=== PATIENT | female | born 1990 | race African-American/Black ===

== ENCOUNTER 2023-10-05 16:06 | Emergency (ER) | payer OTHER, SELFPAY ==
--- NOTE | ~2023-10-05 | XR_ITS ---
EXAMINATION: XR SHOULDER, LEFT CLINICAL INFORMATION: pain COMPARISON: None TECHNIQUE: Three views of the shoulder. FINDINGS: No acute fracture or dislocation. Mild degenerative changes of the acromioclavicular joint with degenerative spurring. Soft tissues are unremarkable. XR/XR shoulder LT min 2V IMPRESSION: Mild degenerative changes of the acromioclavicular joint with degenerative spurring.
[2023-10-05 16:28] VITALS: BP 136/95; PULSE 97; RESP 20; TEMP 37; O2SAT 99; BMI 39.0
--- NOTE | 2023-10-05 16:33 | ECG_ITS ---
Test Reason : back pain Blood Pressure : / mmHG Vent. Rate : 083 BPM Atrial Rate : 083 BPM P-R Int : 140 ms QRS Dur : 072 ms QT Int : 366 ms P-R-T Axes : 020 005 004 degrees QTc Int : 430 ms Normal sinus rhythm Normal ECG No previous ECGs available Referred By: Yuliana Stewart Electronically Signed By:ALVINA BREWER MD
[2023-10-05] MEDS: Acetaminophen 325 MG TABLET 975 MG PO (16:34)
--- NOTE | 2023-10-05 17:42 | ED.GENADULT ---
HPI - General Adult General Chief complaint: Extremity Problem Stated complaint: Back pain Time Seen by Provider: 10/05/23 20:23 Source: patient Mode of arrival: ambulatory Limitations: no limitations History of Present Illness HPI narrative: Patient is a 33-year-old female presents emergency department for evaluation of atraumatic left shoulder pain predominantly across the posterior shoulder and into the deltoid region. Onset of symptoms approximately 1 week ago, not worsening but not improving despite the use of ibuprofen 400 mg a couple times daily. She does state that she is often lifting heavy objects at work, but does not recall a specific precipitating injury. She denies numbness, tingling, cold sensation to the arm. Denies associated neck pain, dizziness, chest pain, shortness of breath, difficulty breathing. Related Data Previous Rx's Medication Instructions Recorded naproxen 500 mg tablet 500 mg PO BID #14 tabs 10/05/23 Allergies Allergy/AdvReac Type Severity Reaction Status Date / Time No Known Allergies Allergy Verified 10/05/23 16:30 Review of Systems Review of Systems: Yes all other systems are reviewed and are negative [facility] Past Medical History Attestation statement: The following information was validated with the patient. Source: old records reviewed Social History Social History Advance Directives: No Advance Directives Information Provided: No Physical Exam ED Vital Signs: Vital Signs - 24 hr 10/05/23 16:28 10/05/23 19:53 Temperature 98.6 F 97.9 F Pulse Rate 97 83 Respiratory Rate 20 16 Blood Pressure 136/95 H 126/77 Pulse Oximetry 99 98 Oxygen Delivery Method Room Air Room Air BMI result Body Mass Index 39.0 Appearance: Alert.?Oriented to person, place and time. No acute distress.?Normal affect. Eyes: Pupils equal, round and reactive to light.? ENT: Pharynx normal.?? Neck: Normal inspection.? Neck supple.?? CVS: Heart sounds normal. Normal heart rate and rhythm.? Pulses normal.?? Respiratory: No respiratory distress.? Lung sounds clear to auscultation bilaterally?? Abdomen: Soft and non-tender. Normoactive bowel sounds. Skin: Skin warm and dry.? Normal skin color.? Extremities: No extremity edema.? Left shoulder with full AROM including external rotation. Pain is exacerbated upon ranging joint. Neuro: Moves all extremities spontaneously. Sensation intact bilaterally. Ambulates with normal steady gait. Course Course Course Narrative: This is an RME: Additional HPI, ROS, PE not included below will be deferred to primary provider. This is a 33-year-old female presenting to the emergency department with complaints of left shoulder and arm pain x 1 week. she states that she does lift often at work however reports she is unsure what caused her to have this pain. She denies any chest pain but states that the pain occasionally radiates down her left arm. No shortness of breath. Plan: EKG, shoulder x-ray, labs further ER evaluation needed. Medications Administered Discontinued Medications Generic Name Dose Route Start Last Admin Trade Name Freq PRN Reason Stop Dose Admin Acetaminophen 975 mg 10/05/23 16:32 10/05/23 16:34 Acetaminophen 325 Mg Tablet PO 10/05/23 16:33 975 mg ONCE ONE Administration Medical Decision Making Medical Decision Making [facility] Narrative: Patient is a 33-year-old female who presents emergency department for evaluation of atraumatic left shoulder pain radiating into the proximal arm to the deltoid region. Extremities neurovascularly intact distally. Full AROM. No erythema or warmth or fevers to suggest septic joint. No associated chest pain or shortness of breath, low suspicion for ACS, PERC negative. No overt trauma to suggest fracture dislocation, XR confirms this. XR imaging does reveal degenerative changes, at this time suspect pain be most consistent with arthritis. Review rest, ice/heat, elevation, acetaminophen/naproxen for pain. Worrisome signs and symptoms that would warrant re-evaluation in the emergency department. Outpatient follow-up with primary care provider. Differential Diagnosis Differential Diagnoses: The differential diagnosis associated with the presentation includes (As noted above) Lab Data [facility] Lab Attestation statement: I reviewed the patient's lab results. CBC is overall unremarkable. CMP overall unremarkable. High sensitive troponin below detectable limits. 10/05/23 18:57 10/05/23 18:57 Labs: Lab Results 10/05/23 Range/Units 18:57 WBC 6.1 (4.8-10.8) X10*3/uL RBC 3.88 L (4.20-5.50) X10*6/uL Hgb 12.3 (12.0-16.0) g/dl Hct 36.2 L (37.0-47.0) % MCV 93.3 (80.0-98.0) fL MCH 31.7 (27.0-33.0) pg MCHC 34.0 (31.0-35.0) g/dl RDW 12.6 (11.0-16.0) % Plt Count 307 (160-400) X10*3/uL MPV 9.7 (9.4-12.3) fL Immature Gran % (Auto) 0.2 (0.0-0.4) % Neut % (Auto) 42.1 L (45-73) % Lymph % (Auto) 49.9 H (20-40) % [place] % (Auto) 5.4 (2-11) % Eos % (Auto) 1.6 (0-4) % Baso % (Auto) 0.8 (0-2) % Lymph # (Auto) 3.0 (1.2-4.9) X10*3/uL [place] # (Auto) 0.3 (0.1-1.2) X10*3/uL Eos # (Auto) 0.1 (0.0-0.4) X10*3/uL Baso # (Auto) 0.1 (0.0-0.2) X10*3/uL Abs Immat Gran (auto) 0.01 (0.00-0.03) X10*3/uL Absolute Neuts (auto) 2.6 (2.0-8.3) x10*3/uL Absolute Nucleated RBC 0.000 (0.0-0.012) X10*3/uL Nucleated RBC % (auto) 0.0 (0.0-0.2) /100WBC Sodium 138 (135-145) mmol/L Potassium 3.3 (3.3-5.1) mmol/L Chloride 107 (96-108) mmol/L Carbon Dioxide 24 (22-29) mmol/L Anion Gap 10 L (12-20) BUN 12 (9-16) mg/dL Creatinine 0.79 (0.5-1.4) mg/dL Estim Creat Clear Calc 114.1 Estimated GFR > 60 Random Glucose 137 H (60-115) mg/dL Calcium 8.9 (8.4-10.2) mg/dL Total Bilirubin 0.2 (0.0-1.0) mg/dL Direct Bilirubin < 0.2 (0.0-0.5) mg/dL AST 19 (5-31) U/L ALT 17 (0-31) U/L Alkaline Phosphatase 75 (39-117) U/L Troponin I High Sens < 2.7 (<3.5-17.0) ng/L Total Protein 7.4 (6.5-8.0) g/dL Albumin 3.8 (3.5-5.0) g/dL Independent Interpretation I performed an independent interpretation of an: EKG and Plain X-Ray (I personally interpreted x-ray and agree with radiologist impression.) Interpretation: Rate:83 Rhythm:? Normal sinus rhythm [place]:? Normal Normal P waves.? Normal MARYJANE.?? Normal QRS complex.?? ST T wave :??No ST elevation, no ST depression qTC:430 The study has been interpreted contemporaneously by me. Radiology Impression Discussion of test interpretation with radiology: I have reviewed the radiologist's reading. Radiologist Impression: XR/XR shoulder LT min 2V IMPRESSION: Mild degenerative changes of the acromioclavicular joint with degenerative spurring. External Record Review External record reviewed: Outpatient record Prescription Management I considered prescription management with: Pain Medication Discharge Plan Discharge Clinical Impression: Arthritis of shoulder Patient Disposition: Home, Self-Care Additional Instructions: You can take Tylenol 500 mg, 2 tablets (1,000mg) every 4-6 hours as needed for pain, but not to exceed 3 doses daily (3,000mg).? Prescription for naproxen was sent to the pharmacy, take his twice daily as prescribed. Do not take additional [id number] ibuprofen/Motrin/Aleve/aspirin while taking this medication. Prescriptions: New naproxen 500 mg tablet 500 mg PO BID Qty: 14 0RF Referrals: Physician,Unknown J [Primary Care Provider] -
[2023-10-05 19:02] LABS: MANUAL DIFF FLAG NO
[2023-10-05 19:03] LABS: Basophils Absolute Auto 0.1 X10*3/uL (0.0-0.2); Basophils Percent Auto 0.8 % (0-2); Eosinophils Absolute Auto 0.1 X10*3/uL (0.0-0.4); Eosinophils Percent Auto 1.6 % (0-4); Hematocrit 36.2 % (37.0-47.0); Hemoglobin 12.3 g/dl (12.0-16.0); Imm Gran Abs Auto 0.01 X10*3/uL (0.00-0.03); Imm Gran Pct Auto 0.2 % (0.0-0.4); Lymphocytes Percent Auto 49.9 % (20-40); Mean Corpuscular Hemoglobin 31.7 pg (27.0-33.0); Mean Corpuscular Volume 93.3 fL (80.0-98.0); Mean Platelet Volume 9.7 fL (9.4-12.3); Monocytes Absolute Auto 0.3 X10*3/uL (0.1-1.2); Monocytes Percent Auto 5.4 % (2-11); Neutrophils Absolute Auto 2.6 x10*3/uL (2.0-8.3); Neutrophils Percent Auto 42.1 % (45-73); Platelet Count 307 X10*3/uL (160-400); Red Blood Count 3.88 X10*6/uL (4.20-5.50); Red Cell Distribution Width 12.6 % (11.0-16.0); White Blood Count 6.1 X10*3/uL (4.8-10.8)
[2023-10-05 19:17] LABS: Alanine Aminotransferase 17 U/L (0-31); Albumin Level 3.8 g/dL (3.5-5.0); Alkaline Phosphatase 75 U/L (39-117); Anion Gap 10 (12-20); Aspartate Amino Transferase 19 U/L (5-31); Bilirubin Direct < 0.2 mg/dL (0.0-0.5); Bilirubin Total 0.2 mg/dL (0.0-1.0); Blood Urea Nitrogen 12 mg/dL (9-16); Calcium 8.9 mg/dL (8.4-10.2); Carbon Dioxide 24 mmol/L (22-29); Chloride 107 mmol/L (96-108); Creatinine Clr Calc Pharmacy 114.1; Estimated Glomerular Filt Rate > 60; Glucose Random 137 mg/dL (60-115); Potassium 3.3 mmol/L (3.3-5.1); Sodium 138 mmol/L (135-145); Total Protein 7.4 g/dL (6.5-8.0)
[2023-10-05 19:27] LABS: Troponin-I High Sensitivity < 2.7 ng/L (<3.5-17.0)
[2023-10-05 19:53] VITALS: BP 126/77; PULSE 83; RESP 16; TEMP 36.6; O2SAT 98
== END 2023-10-05 22:23 | disposition home or self-care (01) ==
PROVIDERS: Physician Assistant Medical; Emergency Provider Internal Medicine
DX: M19.012 Primary osteoarthritis, left shoulder (principal); M54.50 Low back pain, unspecified; M25.511 Pain in right shoulder; Z79.899 Other long term (current) drug therapy
CPT/HCPCS: 36415; 73030; 80048; 80076; 84484; 85025; 93005; 99283; 99284

== ENCOUNTER → 2023-10-05 16:33 | Outpatient (BNV) | payer OTHER, SELFPAY | PROVIDERS: Emergency Provider Internal Medicine; Visit Provider Internal Medicine Cardiovascular Disease | DX: M54.50 Low back pain, unspecified (principal) | CPT/HCPCS: 93010 ==